=== PATIENT | male | born 1970 | race Caucasian/White ===

== ENCOUNTER 2019-10-25 04:20 | Inpatient (IN) | payer MEDICAID, OTHER ==
[2019-10-25] MEDS ORDERED: MAG HYDROX/AL HYDROX/SIMETH 30 ML CUP PO PRN (04:56)
[2019-10-25] MEDS ORDERED: ZIPRASIDONE 20 MG VIAL IM PRN (04:56)
[2019-10-25] MEDS ORDERED: MAGNESIUM HYDROXIDE 2,400 MG/10 ML CUP PO PRN (04:56)
[2019-10-25] MEDS: ACETAMINOPHEN TAB 325 MG TAB PO PRN ×2 (05:22→10:51)
[2019-10-25] MEDS: LORazepam 1 MG TAB PO PRN ×3 (05:22→16:18)
[2019-10-25] MEDS: NICOTINE 21MG/24HR PATCH TRANSDERM SCH (09:23)
[2019-10-25 10:17] LABS: Albumin 4.3 g/dL (3.5-5.0); Bilirubin, Delta 0.1 mg/dL (0.0-0.2); Total Bilirubin 1.1 mg/dL (0.2-1.3); Total Protein 6.8 g/dL (6.3-8.2)
[2019-10-25] MEDS ORDERED: LORazepam 1 MG TAB PO PRN (11:40)
--- NOTE | 2019-10-25 15:20 | P.HP ---
Psychiatric H&P - . H&P Date: 10/25/19 History & Physical: IDENTIFYING DATA: He is a 48-year-old male who has history of alcohol use disorder. [facility] transferred him because he presented to their emergency room with complaints of suicidal ideation. HISTORY OF PRESENT ILLNESS: He presented to [facility] acutely intoxicated with reported blood alcohol level 0.298. He complained of suicidal ideation with a plan to drive his truck into an abutment. Instead, he allegedly took a handful of pills out of his prescriptions and drink alcohol. He has been drinking approximately 1 gallon of vodka daily for the last 2 weeks. On the day prior to admission he spoke to her mother. She told him that he received a notice of repossession of his truck. He is homeless and has been living in his truck since August. He will not go to the local senior living and could not live with family due to his history of alcohol use and aggressive behavior. We learned that his truck will be repossessed he felt that he had no reason to live. He complained of alcohol withdrawal symptoms including sweating, tremor, anxiety, nausea and increasing irritability. He denied experiencing auditory or visual hallucinations. He was oriented to person, place and time. Other than elevated blood pressure his vital signs were stable. He complains of continued feelings of hopelessness, helplessness and worthlessness because of his lack of employment and potential homelessness. The only sense of hope is a possible job with a [employer] crew. However, the chief arson division of the company told him that he has to get his alcohol use under control before he can begin working. In addition, [facility] has referred him to a program that would provide a security deposit first month's rent if he can prove stable employment. PAST PSYCHIATRIC HISTORY: He has been receiving mental health and substance abuse "off and on" since he was 15 years old. He is had at least 5 inpatient psychiatric hospitalizations. He is engaged with the mental health through community mental health where he was treated for the diagnoses of alcohol use disorder severe. His last appointment there psychiatrist was in September 2019. PAST MEDICAL HISTORY: He has a history of hypertension and reported myocardial infarct. ALLERGIES: No drug ALLERGIES SUBSTANCE USE HISTORY: He first began drinking at age 9. By the age of 11 he was drinking on weekends. By the age of 17 he met his girlfriend who later b ecame his and his drinking "slowed down". Age 22, the marriage fell apart and he started drinking up to a gallon of liquor daily. This went on for 5 years. Normally he drinks about 1 pint every day. Over the last 2 weeks he is drinking 1 gallon of vodka daily. His last drink was the night of admission. He has been admitted to at least 3 substance abuse treatment programs but has never completed a program. He describes situations where conflict with other residents or staff resulted in his dismissal or leaving the programs. He has attended AA in the past and had a sponsor. He used cannabis once when he was 18. He used cocaine briefly at age 21. He smoked methamphetamine once in August of this year. FAMILY PSYCHIATRIC/SUBSTANCE USE HISTORY: His paternal grandfather by suicide from a gunshot wound. His maternal grandmother and grandfather were hospitalized multiple times for psychiatric treatment. His paternal grandfather, paternal grandmother, paternal aunt and uncle had a history of alcohol use problems. His maternal uncles had alcohol use problems. LEGAL HISTORY: He is had past charges of disorderly intoxication, 3 OWI offenses, resisting arrest and possession of marijuana SOCIAL HISTORY: He was born in [facility]. He has 2 half-brothers and 1 half-sister. His responses mother and stepfather. He denied a history of abuse. He was in special education and dropped out of 11th grade. He is not into service. 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 He has no income and currently has no home. He is and has one adult child. MENTAL STATUS EXAM: He presented as a disheveled and tremulous appearing 48-year-old male who was pleasant on approach. He made eye contact and attempted to interview. He had no distinguishing features or prominent physical abnormalities. He had a distressed facial expression. He was alert and oriented to person, place and time. He showed slight psychomotor retardation in a fine hand tremor. His speech was spontaneous with normal rate, rhythm and volume. His affect was anxious but stable and appropriate. He denied current suicidal ideation or wishes. He denied homicidal ideation. He expresses hopelessness, helplessness and worthlessness. He ruminated about his situation and circumstances that this hospitalization particularly to chronic alcohol use, homelessness and pending loss of his truck. He did not express ideas reference, paranoid ideation or delusional thoughts. His thinking was concrete and associations were coherent and logical. He did not express perseverations, neologisms or blocking. He denied hallucinations and did not appear to be responding to internal stimuli. Global impression of intellect is below average. He is aware of his alcohol use problem and need for treatment. STRENGTHS: Relatively good health, engagement with community mental health, supportive family WEAKNESSES: Chronic alcohol use, lack of stable income, lack of stable housing IMPRESSION: He is a 48-year-old male who has a long history of alcohol use problems. He is had multiple psychiatric hospitalizations and admissions to residential substance abuse problem programs as a result of his alcohol use. In addition to having 3 DUI offenses. He presented to unit with complaints of suicidal ideation after receive notification that his truck will be repossessed. He has signs and symptoms of alcohol withdrawal uncomplicated by alcohol withdrawal hallucinosis or alcohol withdrawal delirium. He should be treated on an inpatient basis with combination of psychopharmacology and multimodal therapy. Monitor for signs and symptoms of alcohol withdrawal delirium. 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 Signed a voluntary admission. Safety precautions. Consult medicine for initial physical exam and medical history. black off worker to complete initial psychosocial assessment and coordinate discharge and aftercare services. Restart his outpatient medications including Abilify 5 mg at bedtime, folic acid 1 mg daily, gabapentin 100 mg 3 times a day, Seroquel 50 mg at bedtime and thiamine 100 mg daily. Perform the CIWA every 4 hours. Administer Ativan 1 mg by mouth if they CIWA is greater than 10 and 2 mg by mouth if the CIWA is greater than 19. Monitor for signs and symptoms of delirium. Geodon 20 mg IM twice a day when necessary for agitation or aggression. Evaluate clinical status response to treatment daily basis. Encourage participation in therapeutic groups and activities as tolerated. Allergies Allergy/AdvReac Type Severity Reaction Status Date / Time No Known Allergies Allergy Verified 10/25/19 04:55 Vital Signs Temp 97.9 F 10/25/19 06:09 Pulse 76 10/25/19 10:55 Resp 20 10/25/19 10:55 BP 154/96 10/25/19 10:55 Pulse Ox 97 10/25/19 06:09 Intake & Output 10/24/19 10/25/19 10/25/19 18:59 06:59 18:59 Weight 70.76 kg Laboratory Last Values Total Bilirubin 1.1 mg/dL (0.2-1.3) 10/25/19 08:48 Conjugated Bilirubin 0.0 mg/dL (0.0-0.3) 10/25/19 08:48 Unconjugated Bilirubin 1.0 mg/dL (0.0-1.1) 10/25/19 08:48 Delta Bilirubin 0.1 mg/dL (0.0-0.2) 10/25/19 08:48 AST 29 U/L (17-59) 10/25/19 08:48 ALT 13 U/L (4-49) 10/25/19 08:48 Alkaline Phosphatase 58 U/L (38-126) 10/25/19 08:48 Total Protein 6.8 g/dL (6.3-8.2) 10/25/19 08:48 Albumin 4.3 g/dL (3.5-5.0) 10/25/19 08:48 Triglycerides 229 mg/dL (<150) H 10/25/19 08:48 Cholesterol 175 mg/dL (<200) 10/25/19 08:48 LDL Cholesterol, Calc 43 mg/dL (0-99) 10/25/19 08:48 HDL Cholesterol 86 mg/dL (40-60) H 10/25/19 08:48 10/25/19 11:44 10/25/19 15:14
[2019-10-25] MEDS: GABAPENTIN 100 MG CAP PO SCH ×2 (16:18→21:21)
[2019-10-25 17:36] LABS: Hemoglobin A1C 5.2 % (4.0-6.0)
[2019-10-25] MEDS ORDERED: LORazepam 2 MG/ML INJ IM PRN ×3 (20:17)
--- NOTE | 2019-10-25 20:19 | P.HPIM ---
History of Present Illness H&P Date: 10/25/19 patient is a 48-year-old male with a PMH of EtOH abuse who presented to the ED for depression and suicidal ideation. The patient notes that he has been having a difficult time coping due to his excessive drinking and his poor social situation. The patient is currently homeless, and had been living in his truck which has also been now repossessed. The patient was thereby admitted to the mental health unit where he was seen and evaluated at the bedside. He reports feeling somewhat better since admission. Denied homicidal or suicidal ideation. He also denied any additional complaints. Denied chest pain, shortness of breath, nausea, vomiting, fever, chills, recent travel, or sick contacts, or diarrhea. The patient notes that he has a history of alcohol withdrawal with delirium tremens, requiring inpatient hospitalization in the past. He denied ever needing intubation or having to be in the ICU. Patient notes that his last treatment was yesterday evening. Review of Systems Pertinent positives and negatives as discussed in HPI, a complete review of sys tems was performed and all other systems are negative. Past Medical History Past Medical History: COPD, Hypertension History of Any Multi-Drug Resistant Organisms: None Reported Past Surgical History: No Surgical Hx Reported Past Anesthesia/Blood Transfusion Reactions: No Reported Reaction Past Psychological History: Anxiety, Depression Smoking Status: Current every day smoker Past Alcohol Use History: Abuse Additional Past Alcohol Use History / Comment(s): Drinks 1 Liter everyday Past Drug Use History: None Reported Medications and Allergies Home Medications Medication Instructions Recorded Confirmed Type ARIPiprazole [Abilify] 5 mg PO DAILY 10/25/19 10/25/19 History Folic Acid 1 mg PO DAILY 10/25/19 10/25/19 History Gabapentin [Neurontin] 100 mg PO TID 10/25/19 10/25/19 History QUEtiapine [SEROquel] 100 mg PO HS 10/25/19 10/25/19 History Thiamine [Vitamin B-1] 100 mg PO DAILY 10/25/19 10/25/19 History Allergies Allergy/AdvReac Type Severity Reaction Status Date / Time No Known Allergies Allergy Verified 10/25/19 04:55 Physical Exam Vitals: Vital Signs Temp Pulse Resp BP Pulse Ox 10/25/19 10:55 76 20 154/96 10/25/19 06:09 97.9 F 97 20 164/110 97 10/25/19 05:26 92 140/93 Intake and Output 10/25/19 10/25/19 10/25/19 06:59 14:59 22:59 Other: Weight 70.76 kg General: non toxic, disheveled male, no distress, appears at stated age, normal weight Derm: no unusual rashes/lesions no unusual ecchymoses, warm, dry Head: atraumatic, normocephalic, symmetric Eyes: EOMI, no lid lag, anicteric sclera, pupils equal round reactive to light ENT: Nose and ears atraumatic, no thrush, no pharyngeal erythema Neck: No thyromegaly, no cervical lymphadenopathy, trachea midline, supple Mouth: no lip lesion, mucus membranes moist Cardiovascular: S1S2 reg, no murmur, positive posterior tibial pulse bilateral, no edema, capillary refill less than 2 seconds Lungs: CTA bilateral, no rhonchi, no rales , no accessory muscle use Abdominal: soft, nontender to palpation, no guarding, no appreciable organomegaly, normal bowel sounds Ext: no gross muscle atrophy, muscle strength 5 out of 5 in all 4 extremities grossly, no contractures, Neuro: CN II-XI grossly intact, light touch intact all 4 extremities, finger to nose within normal limits, Psych: Alert, oriented, appropriate affect Results Labs: Abnormal Lab Results - Last 24 Hours (Table) 10/25/19 Range/Units 08:48 Triglycerides 229 H (<150) mg/dL HDL Cholesterol 86 H (40-60) mg/dL Thrombosis Risk Factor Assmnt - Choose All That Apply Each Factor Represents 1 point: Age 41-60 years Other Risk Factors: No Other congenital or acquired thrombophilia - If yes, enter type in comment: No Thrombosis Risk Factor Assessment Total Risk Factor Score: 1 Thrombosis Risk Factor Assessment Level: Low Risk Assessment and Plan Plan: EtOH abuse, impending withdrawal -Start patient on Librium -CIWA protocol -Thiamine, folic acid, multivitamins Elevated blood pressure -If continues to be elevated, may consider starting antihypertensives -Possibly due to impending alcohol withdrawal Depression with suicidal ideation -As per psychiatry Thank you for allowing us to participate in the care of this patient. We will follow peripherally. Do not hesitate to contact us with questions. Someone can be reached from the [facility] hospitalist group at all hours of the day at [phone].
[2019-10-25] MEDS: ARIPiprazole 5 MG TAB PO SCH (21:20)
[2019-10-25] MEDS: QUEtiapine 50 MG TAB PO SCH (21:20)
[2019-10-26 08:46] LABS: African American GFR (CKD) >90 (>60 ml/min/1.73 sqM); Anion Gap 8 mmol/L; Blood Urea Nitrogen 18 mg/dL (9-20); Calcium 9.8 mg/dL (8.4-10.2); Carbon Dioxide 25 mmol/L (22-30); Chloride 104 mmol/L (98-107); Glucose 91 mg/dL (74-99); Magnesium 1.7 mg/dL (1.6-2.3); Non-African American GFR(CKD) >90 (>60 ml/min/1.73 sqM); Phosphorus 3.9 mg/dL (2.5-4.5); Sodium 137 mmol/L (137-145)
[2019-10-26] MEDS: GABAPENTIN 100 MG CAP PO SCH ×3 (09:24→21:36)
[2019-10-26] MEDS: THIAMINE 100 MG TAB PO SCH (09:24)
[2019-10-26] MEDS: FOLIC ACID 1 MG TAB PO SCH (09:24)
[2019-10-26] MEDS: NICOTINE 21MG/24HR PATCH TRANSDERM SCH (09:24)
[2019-10-26] MEDS: MULTIVITAMINS, THERA 1 EACH TAB PO SCH (09:24)
[2019-10-26] MEDS: LORazepam 1 MG TAB PO PRN (12:57)
--- NOTE | 2019-10-26 13:46 | P.PN ---
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 He is experiencing minimal to moderate symptoms of alcohol withdrawal with CIWA scores ranging from 0-10. He is on modified CIWA protocol with both Ativan and Librium. Medicine consult [facility] ed. He is ambivalent about residential substance abuse treatment. He talked about his past experiences in residential programs where he left early as a results of conflict with patients or providers. He described greater success with outpatient program. He alleged that he was sober for about 9 years when he participated in an intensive outpatient programs. He was anxious about leaving hospital both willing to remain to complete the alcohol detox. He denied feeling depressed or having thoughts of or suicide. He remains concerned about where he will live believes that he would be able to live with his mother temporarily after discharge. He denied experiencing auditory, visual or olfactory hallucinations. Objective - Vital Signs Vital signs: Vital Signs Temp 98.1 F 10/26/19 12:59 Pulse 86 10/26/19 12:59 Resp 16 10/26/19 12:59 BP 136/98 10/26/19 12:59 Pulse Ox 97 10/26/19 12:59 - Exam He presented as a somewhat disheveled-appearing middle-aged male who was pleasant on approach. He made eye contact and attended the interview. He has slight hand tremor but he was not diaphoretic or restless. His speech was spontaneous with normal rate and rhythm. He says he was anxious. He denied suicidal ideation or wishes. He denied homicidal ideation. He did not express paranoid ideation or delusional thoughts. His thinking was concrete. Associations were coherent and logical. He did not appear to be responding to internal stimuli. - Labs CBC & Chem 7: 10/26/19 08:19 Assessment and Plan Assessment: He is having at most moderate symptoms of alcohol withdrawal uncomplicated by delirium or hallucinosis. He is ambivalent about residential substance abuse treatment. Plan: Continue hospitalization due to the risk of withdrawal delirium. Continue alcohol detox protocol as written. Continue Abilify 5 mg at bedtime with Seroquel 50 mg at bedtime and gabapentin 100 mg 3 times a day. Continued discussion of residential substance abuse treatment. storage worker to explore intensive outpatient substance abuse treatment options in the community. Encourage participation in therapeutic groups and activities as tolerated.
[2019-10-26] MEDS: QUEtiapine 50 MG TAB PO SCH (21:36)
[2019-10-26] MEDS: ARIPiprazole 5 MG TAB PO SCH (21:36)
[2019-10-27] MEDS: ACETAMINOPHEN TAB 325 MG TAB PO PRN ×2 (08:33→17:17)
[2019-10-27] MEDS: MULTIVITAMINS, THERA 1 EACH TAB PO SCH (08:34)
[2019-10-27] MEDS: GABAPENTIN 100 MG CAP PO SCH ×3 (08:34→20:58)
[2019-10-27] MEDS: THIAMINE 100 MG TAB PO SCH (08:34)
[2019-10-27] MEDS: NICOTINE 21MG/24HR PATCH TRANSDERM SCH (08:34)
[2019-10-27] MEDS: FOLIC ACID 1 MG TAB PO SCH (08:34)
--- NOTE | 2019-10-27 11:51 | P.PN ---
Progress Note - Text Interval history: The patient is found in the hallway seated on the floor he follows me to an interview room. He states that he feels "pissed off". He described a situation where he feels he was treated unfairly by staff in the dining room. It seems that it pertains to the staff wanting to disinfect items before he took them. He states that he had suicidal thoughts this morning but those seem better now. He is experiencing some mild symptoms of withdrawal. We are monitoring his CIWA scores he is on scheduled Librium as well as when necessary Ativan. He is getting Abilify with Seroquel he we'll admit he has no idea why he is taking medicines but does comply. He states that he did make the call to arrange inpatient chemical dependency treatment. He is frustrated in that he is not able to go there today as he expected it to be immediately available. Mental status exam: The patient is alert he is directable he speaks loudly but without any aggressive tone. He is distractible. He has a disheveled appearance hygiene grooming impaired. He reports having a mood that is pissed off. He is reporting no suicidal or homicidal ideation at this time but states he had suicidal thoughts this morning. He is reporting no auditory or visual hallucinations there's no observed evidence of hallucinations. He is endorsing no specific delusions. He can be circumstantial he is demonstrating no tangential thinking loose associations or flight of ideas. He demonstrates no involuntary repetitive movements. Insight and judgment are limited. He states that he was disoriented but he is able to name the correct day the week he is aware of his name and current location. Plan: The patient will continue on his current psychotropic medication we will monitor him for safety. Continue to monitor him for alcohol withdrawal. He is encouraged to appropriately participate in the milieu. He requires continued psychiatric hospitalization. His efforts to arrange inpatient chemical dependency treatment were validated and he is encouraged to continue on that course.
[2019-10-27] MEDS: LORazepam 1 MG TAB PO PRN (13:08)
[2019-10-27] MEDS: ARIPiprazole 5 MG TAB PO SCH (20:56)
[2019-10-27] MEDS: QUEtiapine 50 MG TAB PO SCH (20:56)
[2019-10-28] MEDS: GABAPENTIN 100 MG CAP PO SCH ×3 (08:49→21:06)
[2019-10-28] MEDS: FOLIC ACID 1 MG TAB PO SCH (08:50)
[2019-10-28] MEDS: THIAMINE 100 MG TAB PO SCH (08:50)
[2019-10-28] MEDS: NICOTINE 21MG/24HR PATCH TRANSDERM SCH (08:50)
[2019-10-28] MEDS: MULTIVITAMINS, THERA 1 EACH TAB PO SCH (08:50)
[2019-10-28] MEDS: LORazepam 1 MG TAB PO PRN (11:29)
--- NOTE | 2019-10-28 11:30 | P.PN ---
Progress Note - Text Interval history: The patient's found in the hallway he follows me to an interview room. He indicates that he feels agitated at times. He feels that the bathroom sink doesnt work well enough he continues to find some of the staff frustrating as they enforce rules on the mental health unit. He states that if he was able to drink alcohol right now he would be drinking. He reports that he is willing to go to [place] but wants to be discharged tomorrow. We reviewed his psychotropic medication. His questions were answered. CIWA scores were reviewed. He has been selectively attending groups. Mental status exam: The patient is alert he is cooperative he is directable. He has a disheveled appearance hygiene is adequate. Speech is fluent and spontaneous nonpressured. He describes and agitated mood. He reports no suicidal or homicidal ideation intent or plan. He reports no auditory or visual hallucinations or any specific delusions. He demonstrates no physical aggressiveness. He demonstrates no involuntary repetitive movements. Insight and judgment limited. He is oriented to person place and date. He demonstrates no tangential thinking loose associations or flight of ideas. Plan: The patient will continue on his current psychotropic medication however I will reduce the scheduled Librium to 10 mg 3 times a day. Ativan is still available as needed for any breakthrough alcohol withdrawal symptoms. He is encouraged to participate in the milieu. We will await his [place] placement date.
[2019-10-28] MEDS: ACETAMINOPHEN TAB 325 MG TAB PO PRN (17:17)
[2019-10-28] MEDS: ARIPiprazole 5 MG TAB PO SCH (21:05)
[2019-10-28] MEDS: QUEtiapine 50 MG TAB PO SCH (21:05)
[2019-10-29 07:22] VITALS: BP 124/85; PULSE 80; RESP 18; TEMP 97.6
[2019-10-29] MEDS: MULTIVITAMINS, THERA 1 EACH TAB PO SCH (09:06)
[2019-10-29] MEDS: NICOTINE 21MG/24HR PATCH TRANSDERM SCH (09:06)
[2019-10-29] MEDS: GABAPENTIN 100 MG CAP PO SCH (09:06)
[2019-10-29] MEDS: FOLIC ACID 1 MG TAB PO SCH (09:06)
[2019-10-29] MEDS: THIAMINE 100 MG TAB PO SCH (09:06)
--- NOTE | 2019-10-29 11:35 | P.DS ---
Providers Date of admission: 10/25/19 04:32 Attending physician: Ad Capone MD Consults: 10/25/19 04:56 Consult Physician Routine Consulting Provider: [facility] Consult Reason/Comments: H & P Do you want consulting provider notified?: Already Contacted Primary care physician: Marlon Washington - Discharge Diagnosis(es) (1) Alcohol withdrawal Current Visit: Yes Status: Resolved Priority: Low (2) Alcohol use disorder, severe, dependence Current Visit: Yes Status: Chronic Priority: High (3) Alcohol-induced depressive disorder with moderate or severe use disorder Current Visit: Yes Status: Resolved Priority: Medium (4) Intellectual disability Current Visit: Yes Status: Chronic Priority: Low (5) Problem related to employment Current Visit: Yes Status: Acute Priority: Medium (6) Housing situation unstable Current Visit: Yes Status: Chronic Priority: Medium Hospital Course: He is a 48-year-old male who has history of alcohol use disorder. [facility] transferred him because he presented to their emergency room with complaints of suicidal ideation. He presented to [facility] acutely intoxicated with reported blood alcohol level 0.298. He complained of suicidal ideation with a plan to drive his truck into an abutment. Instead, he allegedly took a handful of pills out of his prescriptions and drink alcohol. He has been drinking approximately 1 gallon of vodka daily for the last 2 weeks. On the day prior to admission he spoke to her mother. She told him that he received a notice of repossession of his truck. He is homeless and has been living in his truck since August. He will not go to the local fdc and could not live with family due to his history of alcohol use and aggressive behavior. We learned that his truck will be repossessed he felt that he had no reason to live. He complained of alcohol withdrawal symptoms including sweating, tremor, anxiety, nausea and increasing irritability. He denied experiencing auditory or visual hallucinations. He was oriented to person, place and time. Other than elevated blood pressure his vital signs were stable. He complains of continued feelings of hopelessness, helplessness and worthlessness because of his lack of employment and potential homelessness. The only sense of hope is a possible job with a [employer] crew. However, the creative services writer of the company told him that he has to get his alcohol use under control before he can begin working. In addition, [facility] has referred him to a program that would provide a security deposit first month's rent if he can prove stable employment. He has been receiving mental health and substance abuse "off and on" since he was 15 years old. He is had at least 5 inpatient psychiatric hospitalizations. He is engaged with the mental health through [facility] where he was treated for the diagnoses of alcohol use disorder severe. His last appointment there psychiatrist was in September 2019. We admitted him to psychiatric unit under care of this comic writer. We provided a copy has a biopsychosocial assessment. The consulting hospitalists completed initial physical exam and medical history and diagnosis or call abuse, impending all call withdrawal, elevated blood pressure. We treated the alcohol withdrawal with a combination of Librium and Ativan. We monitored the alcohol withdrawal symptoms using the CIWA scale. He showed minimal to moderate alcohol withdrawal symptoms uncomplicated by hallucinations or delirium. He posed no management problem had no episodes behavioral dyscontrol. He was initially ambivalent about her recommendation for residential substance abuse treatment. However, he alleged that he called [facility] and provided information for admission to [place]. He intermittently attended therapeutic groups and activities. He made arrangements to live with his mother temporarily until he could not substance abuse treatment. He is "not he'll begin working again with a [employer] crew. Time of discharge she presented as a casually groomed 48-year-old male who was pleasant on approach. He made eye Contact and attended the interview. He had no distinguishing features or prominent physical abnormalities. He had a blunted facial expression. He was alert and oriented to person, place and time. He showed no abnormality of psychomotor activity. He had a slow but steady gait. His speech was spontaneous with normal rate, rhythm and volume. His affect was depressed but reactive. He denied suicidal ideation or wishes. He denied homicidal ideation. He denied feeling hopeless, helpless or worthless. He ruminated about employment, income and his housing situation. His thinking was concrete but his associations were coherent, logical and goal directed. He denied hallucinations did not appear to be responding to internal stimuli Patient Condition at Discharge: Stable Plan - Discharge Summary Discharge Rx Participant: No New Discharge Prescriptions: New QUEtiapine [SEROquel] 50 mg PO HS #30 tab Continue Thiamine [Vitamin B-1] 100 mg PO DAILY Folic Acid 1 mg PO DAILY ARIPiprazole [Abilify] 5 mg PO DAILY #30 tab Gabapentin [Neurontin] 100 mg PO TID #90 cap Discontinued QUEtiapine [SEROquel] 100 mg PO HS Discharge Medication List Folic Acid 1 mg PO DAILY 10/25/19 [History] Thiamine [Vitamin B-1] 100 mg PO DAILY 10/25/19 [History] ARIPiprazole [Abilify] 5 mg PO DAILY #30 tab 10/29/19 [Rx] Gabapentin [Neurontin] 100 mg PO TID #90 cap 10/29/19 [Rx] QUEtiapine [SEROquel] 50 mg PO HS #30 tab 10/29/19 [Rx] Patient Instructions/Handouts: Depression (DC), Suicide Prevention (DC) Activity/Diet/Wound Care/Special Instructions: Activity and diet as tolerated. Avoid the use of street drugs and alcohol. Take all medications as prescribed. When you are in need of refills on your medications please contact your medical provider and/or outpatient psychiatrist to have this done. Please go to scheduled outpatient appointment for aftercare treatment. If symptoms return or become worse, call the crisis line at and/or go to the nearest emergency room for evaluation. Discharge Disposition: HOME SELF-CARE
[2019-10-29] MEDS: ACETAMINOPHEN TAB 325 MG TAB PO PRN (12:16)
== END 2019-10-29 12:53 | disposition home or self-care (01) | DRG 897 ==
LOC: 3MHU 04:32
PROVIDERS: ADMIT Psychiatry & Neurology Psychiatry; ATTEND Psychiatry & Neurology Psychiatry
DX: F10.24 Alcohol dependence with alcohol-induced mood disorder (principal); R45.851 Suicidal ideations; F10.239 Alcohol dependence with withdrawal, unspecified; Y90.8 Blood alcohol level of 240 mg/100 ml or more; F79 Unspecified intellectual disabilities; I10 Essential (primary) hypertension; J44.9 Chronic obstructive pulmonary disease, unspecified; I25.2 Old myocardial infarction; F15.11 Other stimulant abuse, in remission; F12.11 Cannabis abuse, in remission; F17.210 Nicotine dependence, cigarettes, uncomplicated; Z71.6 Tobacco abuse counseling; Z79.899 Other long term (current) drug therapy; Z59.0 Homelessness; Z59.8 Other problems related to housing and economic circumstances
CPT/HCPCS: 80048; 80061; 80076; 83036; 83735; 84100